=== PATIENT | male | born 1955 | race Caucasian/White ===

== ENCOUNTER 2017-07-01 07:30 | Outpatient (RCR) | payer OTHER, SELFPAY ==
--- NOTE | 2017-06-01 15:51 | HP.PTEVAL_ITS ---
Patient's Visit Information SHORTY VELEZ is a 62 year old M referred to Physical Therapy by DO JC Ricardo with a diagnosis of R TKA. Date of Evaluation: 06/01/17 Physical Therapist: Jose M Martínez PT, - Visit Plan Frequency: 2-3x /Week Duration: 6 Weeks Plan: R knee stretching and strengthening, PROM and mobs, core strengthening, nustep, and HEP - Subjective Subjective: DOS: 05/24/17. Pt reports he had a Hx of R knee pain prior to this surgery. Pt reports he had aarthroscopy performed in Jan secondary to torn meniscus. Pt reports the pain didnt get better, so a TKA was performed. Pt reports his knee is sore after the surgery, but the severe pain he had prior to surgery is gone. Pt reports he would get to the end of his work day in the past and barely be able to move. No T or N in R LE. Pt reports sleep diff secondary to pain. 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 3/10 at rest , 10/10 at worst (stairs, 3 into house) - Pain R knee pain Pain Intensity (Out of 10): 3 Pain Intensity Range: 10 - Objective Neuro: B LE sensation is WNL to light touch. B achilles 2/3. Girth at joint line: L knee 34 cm, R knee 39 cm. ROM: R knee 0-13-97, L knee 0-136. MMT: L knee 5/5 throughout, R knee 3+/5 throughout. Gait: Pt can ambulate 200 with SBA and CGA x 1 with WW - Goals Goal 1:: Increase R knee strength x 1 grade to aid with stair negotiation Goal Time Frame: 4-6 Weeks Goal 2:: Decrease R knee ROM x 30 degrees to aid with restoring a more normal gait pattern Goal Time Frame: 4-6 Weeks Goal 3:: Decrease R knee pain x 50% to aid with sleep Goal Time Frame: 4-6 Weeks Goal 4:: I with HEP Goal Time Frame: 4-6 Weeks - Rehabilitation Potential Physical Therapy Diagnosis: R knee pain, swelling, and weakness secondary to R TKA Rehabilitation Potential: Good - Anticipated Interventions Patient/Client Instruction: Educate patient on: Condition, Plan of Care For the Purpose of:: To improve self management Therapeutic Exercise to Include: Strength training, Endurance training, Balance training, Flexibilty training, Gait and locomotor training, Passive ROM, Active ROM, Dynamic Lumbar Stabilization For the Purpose of:: To decrease pain, To increase ROM, To improve muscle performance and motor function Cryotherapy (ice pack, ice massage): Yes For the Purpose of:: To decrease pain Thank you for the opportunity to evaluate your patient. For Medicare and Medicare HMO plans, please review the plan of care and approve it. It will need to be FAXED BACK to us at [phone] for Medicare purposes. Please let me know if there are questions or concerns regarding this plan of care. Physician Signature: Date:
--- NOTE | 2017-07-01 08:03 | HP.PTDCSUM ---
HP - PT D/C Summary It has been my pleasure to treat SHORTY VELEZ under orders from Jose Sorto DO, for the diagnosis of R TKA for a total of 13 visit(s). Discharge Date: Please see the following information for a summary of their discharge status. - Subjective Subjective: Pt reports he still has diff with sleep at night - Pain R knee pain Pain Intensity (Out of 10): 1 - Objective Objective/Function: R knee girth at joint line: 37 cm. R knee MMT: 5/5 throughout. R knee ROM: 0-5-123. I with HEP. Rx goals achieved - Goals Goal 1:: Increase R knee strength x 1 grade to aid with stair negotiation Goal 2:: Decrease R knee ROM x 30 degrees to aid with restoring a more normal gait pattern Goal Progress: Progressing Goal 3:: Decrease R knee pain x 50% to aid with sleep Goal 4:: I with HEP - Plan Plan: Discharge - D/C Information If there are questions or concerns regarding this patient's physical therapy, please feel free to call me at [phone]. Thank you for the referral of this patient. Sincerely, Jose M Martínez, PT,
== END 2017-07-01 19:00 | disposition home or self-care (01) ==
LOC: PT 07:30
PROVIDERS: Family Provider Internal Medicine; PCP Internal Medicine; Visit Provider Orthopaedic Surgery
DX: Z98.890 Other specified postprocedural states (principal)
CPT/HCPCS: 97110; 97161; 97530

== ENCOUNTER → 2017-07-04 12:49 | Outpatient (CLI) | payer OTHER, SELFPAY ==
--- NOTE | 2017-07-04 12:51 | RAD_ITS ---
STUDY: X-RAY - RIGHT KNEE REASON FOR EXAM: Male, 62 years old. TECHNIQUE: . 4 view(s) of the knee. COMPARISON: None. FINDINGS: There is a total knee replacement with metallic hardware in good position. There is fragmented changes involving the inferior aspect of the anterior tibial tubercle and swelling in the infrapatellar soft tissue. There is no knee joint effusion. RAD/Knee 4 or More Views IMPRESSION: A total right knee replacement with infrapatellar soft tissue swelling. The hardware is in good position. Electronically Signed: Mike Barron, at 2:54 EST Tel , Service support ,
== END ==
PROVIDERS: Family Provider Internal Medicine; PCP Internal Medicine; Visit Provider Orthopaedic Surgery
DX: Z47.89 Encounter for other orthopedic aftercare (principal)
CPT/HCPCS: 73564

== ENCOUNTER → 2017-12-05 16:20 | Outpatient (CLI) | payer OTHER, SELFPAY | PROVIDERS: Family Provider Internal Medicine; PCP Internal Medicine; Visit Provider Nurse Practitioner Adult Health | DX: R31.9 Hematuria, unspecified (principal) ==

== ENCOUNTER → 2017-12-06 17:55 | Outpatient (CLI) | payer SELFPAY ==
--- NOTE | 2017-12-06 | FLU_PTH ---
PATIENT: SHORTY VELEZ Jr. LOC: [facility] U#:[id number] AGE/SX: 70/M ROOM: RE12/06/[address]: NOLAN Lal : 1955 BED: DIS: SPEC #: [id number] RECD: 12/06/17 16:20 STATUS: THERESE ANU #: [id number] FLACA: 12/06/17 00:[address]: Daphne Porter NP DEPT: CYTOLOGY RECD BY: Lou Guillen Tissues: Urine Procedures: Pap Stain (control) Special Stain Group II Surgery Specimen Level IV Cytospin Fluid HEADER OPERATION: Not noted PRE-OP DIAGNOSIS: Hematuria TISSUE SUBMITTED: Urine for cytology DIAGNOSIS CYTOLOGY Urine for cytology (cytospin): Negative for malignant cells. OMER:cynthia 12/08/17 CYTOLOGY STUDY Slides are reviewed. The specimen predominantly consists of benign squamous cell, a few benign urothelial cells and red blood cells. CYTOLOGY GROSS Received is 50 ml of clear light yellow fluid labeled with the patient's name and and designated per the requisition as urine. Submitted for cytology preparation. /ARABELLA:richardson 12/07/17 TC:5 [facility]: [id number]
[2017-12-06 17:58] LABS: Cytology, Body Fluid / CSF SEE PATHOLOGY REPORT
== END ==
PROVIDERS: Visit Provider Nurse Practitioner Adult Health
DX: R31.9 Hematuria, unspecified (principal)
CPT/HCPCS: 88108; 88305; 88313

== ENCOUNTER 2017-12-29 19:57 | Inpatient (IN) | payer OTHER, SELFPAY ==
[2017-12-29 19:58] VITALS: BP 186/106; PULSE 103; RESP 27; TEMP 36.7; O2SAT 97; BMI 27.7
--- NOTE | 2017-12-29 20:03 | ED.RN ---
RN CALLED FOR EKG, PULLED OLD EKGS FOR
[2017-12-29 20:05] VITALS: BP 190/104; PULSE 101; RESP 40; O2SAT 100
[2017-12-29 20:23] LABS: Absolute Neutrophil Count 6.1 X10^3/uL (2.0-7.7); Basophil# 0.06 X10^3/uL; Basophil% 0.5 % (0-1); Eosinophils% 0.9 % (0-5); Hematocrit 38.3 % (40-54); Hemoglobin 13.5 g/dl (13.0-16.5); Lymphocyte % 34.2 % (19-41); Mean Corp Hgb Conc 35.2 g/gl (32-36); Mean Corpuscular Hgb 31.6 pg (27.0-32.0); Mean Corpuscular Volume 89.7 fL (80-94); Mean Platelet Vol. 9.7 fl (6.2-12.0); Monocyte# 1.22 X10^3/uL; Monocyte% 10.7 % (0-10); Neutrophil # 6.07 X10^3/uL (2.7-7.7); Neutrophil % 53.3 % (47-70); Platelet Count 344 K/mm3 (150-450); RBC Distribution Width CV 13.5 % (11.6-14.6); RBC Distribution Width SD 44.3 fl (35.1-43.9); Red Blood Count 4.27 M/mm3 (4.6-6.2); White Blood Count 11.4 K/mm3 (4.4-11.0)
[2017-12-29 20:26] LABS: D-Dimer Quantitative (DVT/PE) 0.47 FEU/ug/m (0.27-0.49); POSITIVE COUNT NO; POSITIVE DIFFERENTIAL NO; POSITIVE MORPHOLOGY NO
[2017-12-29 20:33] LABS: Anion Gap 13 (5-15); BUN 28 mg/dL (7-18); BUN/Creat Ratio 13.8 RATIO (10-20); Calcium,Total 9.5 mg/dL (8.5-10.1); Chloride 106 mmol/L (98-107); Creatinine, Serum 2.03 mg/dL (0.70-1.30); EST Glomerular Filtration Rate 36 mL/min (>60); Est Glom Filt Rate - Afr Amer 43 mL/min (>60); Estimated Creatinine Clearance 34.05 ml/min; Glucose 83 mg/dL (74-106); Potassium 4.2 mmol/L (3.5-5.1); Sodium Level 137 mmol/L (136-145)
[2017-12-29 21:00] VITALS: BP 132/102; PULSE 82; RESP 19; O2SAT 100
[2017-12-29] MEDS: 0.9% Normal Saline 1,000 ML 1000 ML IV (21:04)
[2017-12-29] MEDS: Aspirin 81 MG TAB.CHEW 324 MG PO (21:04)
[2017-12-29] MEDS: 0.9% Normal Saline 1,000 ML 999 ML IV (22:01)
[2017-12-29 22:45] VITALS: BP 148/95; PULSE 76; RESP 16; O2SAT 96
--- NOTE | 2017-12-29 23:59 | ED.DCSUM_ITS ---
- ER Visit Summary Date of Service: 12/29/17 Chief Complaint: Shortness of breath History of Present Illness: The patient is a [address] Marrero. He reports that he has severe shortness of breath began approximately 1 hour ago. He denies any chest pain. He states that he had finished mowing the grass and was in eating dinner at the onset of this. He has never had anything like this before. Patient denies any fever, chills, or cough. He does report that he has been diaphoretic. No nausea, or vomiting. Physical Examination: Vitals: Stable. Afebrile. General: Well-nourished and well-developed. Head: Normocephalic atraumatic. Neck: Supple, no lymphadenopathy. No JVD. Nontender. Cardiovascular: Regular rate and rhythm. No murmurs. Respiratory: No respiratory distress. Clear to auscultation bilaterally. Hyperventilating. Abdominal: Soft, nontender, nondistended, normal bowel sounds. No guarding, rebound, or peritoneal signs. Back: Nontender. Extremities: Nontender, no edema. Skin: Normal color, no rash. Neurologic: Alert and oriented ?3. Cranial nerves II through XII are intact. Normal strength and sensation. Psych: Normal affect. Test Results: EKG is sinus at 99 with a single PVC and nonspecific ST changes. Is unchanged from May of this year. Repeat EKG is unchanged. Initial troponin 0 0.017. Repeat troponin is 0.027. D-dimer is negative. Chem-7 is more for CO2 of 18, BUN of 28, creatinine 2.03. Of note his creatinine is been 0.81-1.02 in the past. His last creatinine was 0.88 in May of this year. CBC is marked for white count of 11.4 and hematocrit of 38.3. Emergency Department Course and Treatment: Patient was given a liter bolus normal saline. He was given aspirin p.o. He is resting comfortably and his dyspnea has resolved. Treatment Plan: The patient was discussed with Dr. Cordon. He will be admitted to the hospital for further evaluation and treatment. Disposition: Admitted in improved condition. Impression: 1. Dyspnea, possible anginal equivalent. 2. AV score of 2. 3. Acute renal insufficiency. This note was generated with [employer] software. It may contain incorrect words, spelling, and punctuation that were not noted in review of the chart prior to signing ED Disposition - Plan for ED Patient: Chief Complaint: Shortness of Breath Referrals: Spenser Marrero MD [Primary Care Provider] -
[2017-12-30 00:43] VITALS: PULSE 68
[2017-12-30 01:04] VITALS: BP 140/78; BP 141/87; PULSE 69; RESP 16; TEMP 36.7; O2SAT 97
[2017-12-30 01:21] VITALS: BMI 27.1; BMI 27.7
--- NOTE | 2017-12-30 01:23 | PCM.HP.STD ---
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 Patient did lawn mowing today and then at dinner time he was very short of breath along with diaphoresis. In the ED, he denied chest pain but on the floor, he complained of chest tightness, localized with no radiation. Patient also short of breath. Denies chronic respiratory disorder including asthma, COPD or sleep apnea. Patient also said many years ago he was put on antihypertensive medication but was discontinued secondary to side effect N was told he does not need it. His father has history of MA less than 50 years of age. He had a stress test done in 2012 which was negative for acute ischemia or MA. In ED, EKG shows normal sinus rhythm with nonspecific ST-T changes in V1 lead, unchanged from the previous EKG of October 2017. Repeat EKG in the floor also does not show any acute change. 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) 9 mm painful foreign body granuloma right central palm Medical History: Medical History (Last Reviewed 04/27/17 @ 08:42 by Marianne Lucero) Back pain M54.9 Heart murmur R01.1 Reflux esophagitis K21.0 Carpal tunnel syndrome G56.00 Allergies procaine [Procaine] Allergy (Verified 12/29/17 20:00) Other procaine HCl [From Novocain] Allergy (Verified 12/29/17 20:00) Other Home Medications: Ambulatory Orders Medication Instructions Recorded Pantoprazole Sodium [Protonix] 40 mg PO QHS 03/06/13 Aspirin [Aspirin, Baby] 81 mg PO DAILY@0800 04/02/15 Citalopram [Celexa] 20 mg PO QHS 04/02/15 Finasteride [Proscar] 5 mg PO DAILY 05/25/17 Pravastatin [Pravachol] 20 mg PO DAILY 12/29/17 Surgical History: Surgical History (Last Reviewed 04/27/17 @ 08:42 by Marianne Lucero) S/P right knee arthroscopy Z98.890 01/19/17 History of carpal tunnel surgery of right wrist Z98.890 2012 Previous back surgery Z98.890 left eye right central palm excision 9mm painful foreign body granuloma right central palm with 3 cm layered closure 06/19/15 Surgical History: - - Bilateral carpal tunnel surgery Psychiatric History: No pertinent psych hx Smoking Status: Never smoker - *Family History Paternal Family History: Family History (Last Reviewed 04/27/17 @ 08:42 by Marianne Lucero) Father CAD (coronary artery disease) History Items: Heart Disease Review of Systems Constitutional: Denies: Chills, Fever, Weight Change HEENT: Denies: Head Aches, Sinus Congestion, Sinus Drainage Cardiovascular: Reports: Chest Tightness. Denies: Chest Pain, Palpitations Respiratory: Reports: Shortness of Breath. Denies: Cough, Shortness of breath at rest, Sputum production Gastrointestinal: Denies: Abdominal Pain, Nausea, Vomiting Genitourinary: Denies: Dysuria Musculoskeletal: Denies: Joint Pain, Joint Tenderness Skin: Denies: Rash, Wounds Neurological: Denies: Numbness, Tingling, Focal weakness Psychiatric: Denies: Anxiety, Depression, Homicidal Ideations, Suicidal Ideations Hematologic/ Lymphatic: Denies: Easy Bruising, Easy Bleeding VTE Information - Inpt Only VTE Present on Admission: No VTE Mechan Device Prophylaxis: None VTE Pharm Prophylaxis ordered?: Yes Patient Problems: Active and Suspected Problems (Last Reviewed 04/27/17 @ 08:42 by Marianne Lucero) Anginal equivalent (Acute) - Physical Exam General: Alert, Oriented x3, Cooperative HEENT: Atraumatic, PERRLA, EOMI, Normocephalic Neck: Supple, No JVD, Negative Carotid Bruits Lungs: Clear to auscultation, Normal air movement Cardiovascular: Regular rate, Regular Rhythm, Normal S1, Normal S2, No murmurs Abdomen: Bowel Sounds Present, Soft, Non Tender, Non-Distended Extremities: No edema, Capillary Refill Less than 3 Seconds Skin: No rashes, No breakdown Musculoskeletal: No Tenderness to Palpation of Joints or Extremities, Arthritic Changes Neurological: Cranial nerves II-XII grossly intact Psych/Mental Status: Normal Affect, Appropriate Vital Signs Temp Pulse Resp BP Pulse Ox 98.1 F 69 16 140/78 H 97 12/30/17 01:04 12/30/17 01:04 12/30/17 01:04 12/30/17 01:04 12/30/17 01:04 Oxygen Delivery Method Room Air Assessment/Plan All Active Problems (Last Reviewed 04/27/17 @ 08:42 by Marianne Lucero) Anginal equivalent (Acute) The patient is a 62 year old M with history of dyslipidemia came to ER with shortness of breath while having dinner today. Patient did lawn mowing today and then at dinner time he was very short of breath along with diaphoresis. In the ED, he denied chest pain but on the floor, he complained of chest tightness, localized with no radiation. Patient also short of breath. Denies chronic respiratory disorder including asthma, COPD or sleep apnea. Patient also said many years ago he was put on antihypertensive medication but was discontinued secondary to side effect N was told he does not need it. His father has history of MA less than 50 years of age. He had a stress test done in 2012 which was negative for acute ischemia or MA. In ED, EKG shows normal sinus rhythm with nonspecific ST-T changes in V1 lead, unchanged from the previous EKG of October 2017. Repeat EKG in the floor also does not show any acute change. 1. Atypical chest pain with shortness of breath angina equivalent: AV score 2/7. Patient is being admitted on PCU. On ACS protocol with serial troponin enzymes, EKG, aspirin and a statin. Treadmill nuclear stress test tomorrow. 2. Acute kidney injury most probably secondary to hypovolemia/dehydration, prerenal in etiology: Patient BUN is 28 and creatinine 2.03. Last creatinine in May 2017 was normal at 0.88. Patient had 2 L of IV fluid normal saline ER. 500 normal saline bolus and then 150 mls per hour. Monitor intake and output. Monitor kidney function and electrolytes tomorrow morning. 3. Dyslipidemia and family history of MA: Continue home medication. Fasting lipid profile tomorrow a.m. 4. DVT prophylaxis, moderate risk on Lovenox 40 mg subcu daily. This note was generated with [employer] dictation software. Every effort was made to ensure accuracy, however computerized car dumper operator helper mistakes may persist. Code Visit Inpatient E&M: 24826 Init Hosp L3 OBSV E&M: 15171 Initial observation care L3
--- NOTE | 2017-12-30 01:32 | HP.PCM_ITS ---
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 Patient did lawn mowing today and then at dinner time he was very short of breath along with diaphoresis. In the ED, he denied chest pain but on the floor, he complained of chest tightness , localized with no radiation. Patient also short of breath. Denies chronic respiratory disorder including asthma, COPD or sleep apnea. Patient also said many years ago he was put on antihypertensive medication but was discontinued secondary to side effect N was told he does not need it. His father has history of NH less than 50 years of age. He had a stress test done in 2012 which was negative for acute ischemia or NH. In ED, EKG shows normal sinus rhythm with nonspecific ST-T changes in V1 lead, unchanged from the previous EKG of October 2017. Repeat EKG in the floor also does not show any acute change. 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) 9 mm painful foreign body granuloma right central palm Medical History: Medical History (Last Reviewed 04/27/17 @ 08:42 by Marianne Lucero) Back pain M54.9 Heart murmur R01.1 Reflux esophagitis K21.0 Carpal tunnel syndrome G56.00 Allergies procaine [Procaine] Allergy (Verified 12/29/17 20:00) Other procaine HCl [From Novocain] Allergy (Verified 12/29/17 20:00) Other Home Medications: Ambulatory Orders Medication Instructions Recorded Pantoprazole Sodium [Protonix] 40 mg PO QHS 03/06/13 Aspirin [Aspirin, Baby] 81 mg PO DAILY@0800 04/02/15 Citalopram [Celexa] 20 mg PO QHS 04/02/15 Finasteride [Proscar] 5 mg PO DAILY 05/25/17 Pravastatin [Pravachol] 20 mg PO DAILY 12/29/17 Surgical History: Surgical History (Last Reviewed 04/27/17 @ 08:42 by Marianne Lucero) S/P right knee arthroscopy Z98.890 01/19/17 History of carpal tunnel surgery of right wrist Z98.890 2012 Previous back surgery Z98.890 left eye right central palm excision 9mm painful foreign body granuloma right central palm with 3 cm layered closure 06/19/15 Surgical History: - - Bilateral carpal tunnel surgery Psychiatric History: No pertinent psych hx Smoking Status: Never smoker - *Family History Paternal Family History: Family History (Last Reviewed 04/27/17 @ 08:42 by Marianne Lucero) Father CAD (coronary artery disease) History Items: Heart Disease Review of Systems Constitutional: Denies: Chills, Fever, Weight Change HEENT: Denies: Head Aches, Sinus Congestion, Sinus Drainage Cardiovascular: Reports: Chest Tightness. Denies: Chest Pain, Palpitations Respiratory: Reports: Shortness of Breath. Denies: Cough, Shortness of breath at rest, Sputum production Gastrointestinal: Denies: Abdominal Pain, Nausea, Vomiting Genitourinary: Denies: Dysuria Musculoskeletal: Denies: Joint Pain, Joint Tenderness Skin: Denies: Rash, Wounds Neurological: Denies: Numbness, Tingling, Focal weakness Psychiatric: Denies: Anxiety, Depression, Homicidal Ideations, Suicidal Ideations Hematologic/ Lymphatic: Denies: Easy Bruising, Easy Bleeding VTE Information - Inpt Only VTE Present on Admission: No VTE Mechan Device Prophylaxis: None VTE Pharm Prophylaxis ordered?: Yes Patient Problems: Active and Suspected Problems (Last Reviewed 04/27/17 @ 08:42 by Marianne Lucero) Anginal equivalent (Acute) - Physical Exam General: Alert, Oriented x3, Cooperative HEENT: Atraumatic, PERRLA, EOMI, Normocephalic Neck: Supple, No JVD, Negative Carotid Bruits Lungs: Clear to auscultation, Normal air movement Cardiovascular: Regular rate, Regular Rhythm, Normal S1, Normal S2, No murmurs Abdomen: Bowel Sounds Present, Soft, Non Tender, Non-Distended Extremities: No edema, Capillary Refill Less than 3 Seconds Skin: No rashes, No breakdown Musculoskeletal: No Tenderness to Palpation of Joints or Extremities, Arthritic Changes Neurological: Cranial nerves II-XII grossly intact Psych/Mental Status: Normal Affect, Appropriate Vital Signs Temp Pulse Resp BP Pulse Ox 98.1 F 69 16 140/78 H 97 12/30/17 01:04 12/30/17 01:04 12/30/17 01:04 12/30/17 01:04 12/30/17 01:04 Oxygen Delivery Method Room Air Assessment/Plan All Active Problems (Last Reviewed 04/27/17 @ 08:42 by Marianne Lucero) Anginal equivalent (Acute) The patient is a 62 year old M with history of dyslipidemia came to ER with shortness of breath while having dinner today. Patient did lawn mowing today and then at dinner time he was very short of breath along with diaphoresis. In the ED, he denied chest pain but on the floor, he complained of chest tightness , localized with no radiation. Patient also short of breath. Denies chronic respiratory disorder including asthma, COPD or sleep apnea. Patient also said many years ago he was put on antihypertensive medication but was discontinued secondary to side effect N was told he does not need it. His father has history of NH less than 50 years of age. He had a stress test done in 2012 which was negative for acute ischemia or NH. In ED, EKG shows normal sinus rhythm with nonspecific ST-T changes in V1 lead, unchanged from the previous EKG of October 2017. Repeat EKG in the floor also does not show any acute change. 1. Atypical chest pain with shortness of breath angina equivalent: AV score 2 /7. Patient is being admitted on PCU. On ACS protocol with serial troponin enzymes, EKG, aspirin and a statin. Treadmill nuclear stress test tomorrow. 2. Acute kidney injury most probably secondary to hypovolemia/dehydration, prerenal in etiology: Patient BUN is 28 and creatinine 2.03. Last creatinine in May 2017 was normal at 0.88. Patient had 2 L of IV fluid normal saline ER. 500 normal saline bolus and then 150 mls per hour. Monitor intake and output. Monitor kidney function and electrolytes tomorrow morning. 3. Dyslipidemia and family history of NH: Continue home medication. Fasting lipid profile tomorrow a.m. 4. DVT prophylaxis, moderate risk on Lovenox 40 mg subcu daily. This note was generated with [employer] dictation software. Every effort was made to ensure accuracy, however computerized supervisor mold construction mistakes may persist. Code Visit Inpatient E&M: 71770 Init Hosp L3 OBSV E&M: 36168 Initial observation care L3
[2017-12-30 03:06] LABS: Absolute Lymphocyte Count 2.27 X10^3/ul (0.83-4.51); Absolute Neutrophil Count 3.4 X10^3/uL (2.0-7.7); Basophil# 0.05 X10^3/uL; Basophil% 0.7 % (0-1); Eosinophil# 0.21 X10^3/uL; Hematocrit 32.4 % (40-54); Hemoglobin 11.2 g/dl (13.0-16.5); Lymphocyte # 2.27 X10^3/ul (4.0); Lymphocyte % 32.4 % (19-41); Mean Corp Hgb Conc 34.6 g/gl (32-36); Mean Corpuscular Hgb 31.7 pg (27.0-32.0); Mean Corpuscular Volume 91.8 fL (80-94); Mean Platelet Vol. 9.2 fl (6.2-12.0); Monocyte# 1.02 X10^3/uL; Monocyte% 14.6 % (0-10); Neutrophil # 3.44 X10^3/uL (2.7-7.7); Neutrophil % 49.2 % (47-70); Platelet Count 263 K/mm3 (150-450); RBC Distribution Width CV 13.7 % (11.6-14.6); RBC Distribution Width SD 45.1 fl (35.1-43.9); Red Blood Count 3.53 M/mm3 (4.6-6.2)
[2017-12-30 03:09] LABS: International Normalized Ratio 1.1; Prothrombin Time (Protime)PT. 14.1 SECONDS (11.7-14.9)
[2017-12-30 03:10] LABS: Partial Thromboplast Time 27.7 Seconds (24.1-36.2)
[2017-12-30 03:18] LABS: POSITIVE COUNT NO; POSITIVE DIFFERENTIAL NO; POSITIVE MORPHOLOGY NO
[2017-12-30 03:29] VITALS: PULSE 66
[2017-12-30 03:46] LABS: Anion Gap 8 (5-15); BUN 24 mg/dL (7-18); BUN/Creat Ratio 19.2 RATIO (10-20); Calcium,Total 7.8 mg/dL (8.5-10.1); Chloride 113 mmol/L (98-107); Cholesterol 115 mg/dL (200); Creatinine, Serum 1.25 mg/dL (0.70-1.30); EST Glomerular Filtration Rate 62 mL/min (>60); Est Glom Filt Rate - Afr Amer 75 mL/min (>60); Estimated Creatinine Clearance 55.29 ml/min; Glucose 86 mg/dL (74-106); High Density Lipoprotein 43 mg/dL; Potassium 3.8 mmol/L (3.5-5.1); Sodium Level 142 mmol/L (136-145); Thyroid Stim Hormone (TSH) 0.96 uIU/mL (0.358-3.74); Triglycerides 47 mg/dL; Very Low Density Lipoprotein 9 mg/dL (5-40)
[2017-12-30 05:31] VITALS: BP 121/69; PULSE 68; RESP 16; TEMP 36.6; O2SAT 97
[2017-12-30] MEDS: Aspirin E.C. 81 MG Tablet PO (05:34)
[2017-12-30] MEDS: 0.9% Normal Saline 1,000 ML 150 ML IV (05:36)
[2017-12-30 06:55] VITALS: PULSE 69
--- NOTE | 2017-12-30 09:14 | STRESSREP ---
Stress Test Report Exercise myocardial perfusion stress test 62-year-old man with a history of chest pain. Medications: Aspirin, Proscar, Protonix, Pravachol. Stress protocol: Resting EKG demonstrates normal sinus rhythm with a rate of 65 bpm normal intervals and noted resting blood pressure is 154/92 mmHg. The patient exercised according to regular Hilario protocol for total duration of 6 minutes and 16 seconds. The maximum heart rate attained was 141 bpm which was 89% of maximum predicted heart rate the maximum workload attained was 7.3 metabolic equivalents. Patient maintained sinus rhythm throughout the recording. At rest there were no ST or T-wave changes noted suggest ischemia peak exercise upsloping ST changes only were noted with no meet the criteria for ischemia. No clinical angina was noted the test was terminated, due to shortness of breath. The resting blood pressure was 154/92 with a peak blood pressure 186/94. Rate pressure product was 25,200. Myocardial perfusion protocol. 11.0 mCi of technetium 99m sestamibi was injected at rest. The patient exercised according to regular Hilario protocol for total duration of 6 minutes and 16 seconds. At peak exercise 32.1 mCi of technetium 99m sestamibi was injected stress images were obtained stress and rest images were reconstructed and compared in the short axis vertical long and horizontal long axis. Gated images were also obtained pre- Perfusion SPECT analysis: Review of the stress images demonstrate normal uptake of tracer noted in all areas of the myocardium, except for the inferior wall with mildly reduced perfusion. The resting images similarly demonstrate normal areas of dark uptake except for the inferior wall with the same reduction of perfusion. The above is likely secondary to diaphragmatic and GI attenuation. No obvious areas of reversibility are noted suggest ischemia no previous infarct is noted. Gated SPECT analysis: The gated ejection fraction is noted to be 71%. Conclusion: Normal exercise myocardial perfusion stress test at a moderate workload. Preserved ejection fraction.
--- NOTE | 2017-12-30 10:17 | PCM.DC ---
- Discharge Diagnoses Current Active Problems: Current Active and Chronic Problems (Last Reviewed 04/27/17 @ 08:42 by Marianne Lucero) Anginal equivalent (Acute) Dyslipidemia (Chronic) You will use the following diet at home:: Regular Your food should be the consistency of: Regular Discharge Activity: Return to Normal Activity Weight Bearing Status: Full weight bearing Call your doctor if you observe: Fever of 101 or Higher, Shortness of breath, Dizziness, Fainting spells, Chest pain, Increased palpitations (irregular heartbeat), Uncontrolled pain Instructions: Taking Your Blood Pressure Allergies/Adverse Reactions: Allergies procaine [Procaine] Allergy (Verified 12/29/17 20:00) Other procaine HCl [From Novocain] Allergy (Verified 12/29/17 20:00) Other Medications to take at Discharge Pantoprazole Sodium [Protonix] 40 mg PO QHS 03/06/13 Aspirin [Aspirin, Baby] 81 mg PO DAILY@0800 04/02/15 Citalopram [Celexa] 20 mg PO QHS 04/02/15 Finasteride [Proscar] 5 mg PO DAILY 05/25/17 Pravastatin [Pravachol] 20 mg PO DAILY 12/29/17 Primary Care Physician: Spenser Marrero MD [Primary Care Provider] - Please follow up with your Primary Care Physician in: 1-2 weeks. Test Results: Test results from this visit will be discussed in further detail at your follow-up appointment, if applicable.
[2017-12-30 10:25] VITALS: BP 135/79; PULSE 58; RESP 16; TEMP 36.7; O2SAT 98
[2017-12-30] MEDS: Finasteride 5 MG Tablet PO (10:26)
--- NOTE | 2017-12-30 11:30 | CASEMGMT ---
This RN CM to room to complete CM assessment and pt has already been discharged. Per Olivia GRUBER, pt had no current needs at this time. Arline GRUBER CM
--- NOTE | 2017-12-30 12:07 | PCM.DC.SUM ---
Discharge Date and Diagnosis Date of Admission: 12/30/17 Date of Discharge: 12/30/17 - Primary Discharge Diagnosis #1 atypical chest pain/shortness of breath, questionable angina equivalent. #2 acute kidney injury. 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 He denies any more chest pain or shortness of breath since admission. He underwent nuclear stress this morning without any adverse effects. His vital signs are stable, blood pressure improved. - Physical Exam General: Alert, Oriented x3, Cooperative, No apparent distress. HEENT: Atraumatic, PERRLA, EOMI. Neck: Supple, No JVD, Negative Carotid Bruits, Trachea Midline, Thyroid Normal. Lungs: Clear to auscultation, Normal air movement, No rhonchi, No wheeze, No rales. Cardiovascular: Regular rate, Regular Rhythm, Normal S1, Normal S2, PMI Normal. Abdomen: Bowel Sounds Present, Soft, Non Tender, Non-Distended, No Hepato-splenomegaly. Extremities: No clubbing, No cyanosis, No edema Skin: No rashes, No breakdown Neurological: Neuro grossly intact Vital Signs are stable. Hospital course: The patient is a 62 year old M presented to the emergency room because of shortness of breath and intermittent chest pain and he was admitted because of questionable anginal symptoms. Patient admits that he has been working outside at work for long time then he went home and moan his lawn as he was overheated. His EKG revealed no acute ischemic changes. Troponin was negative ?2. Chest x-ray showed no acute findings. He underwent nuclear stress test that showed no evidence of stress-induced myocardial ischemia. On admission, he was found to have acute kidney injury with creatinine of 2. He was treated with IV fluids and his creatinine came down to 1.25, improved. Admission, his blood pressure was elevated but blood pressure returned back to normal after admission. His d-dimer, pro time and INR were normal. Lipid profile and TSH was unremarkable. Acute coronary syndrome ruled out. Patient discharged home in a stable medical condition, discharged on his chronic home medication without any changes, recommended to keep monitor his blood pressure, follow-up with PCP in 1-2 weeks. Discharge Activity: Return to Normal Activity Weight Bearing Status: Full weight bearing Call your doctor if you observe: Fever of 101 or Higher, Shortness of breath, Dizziness, Fainting spells, Chest pain, Increased palpitations (irregular heartbeat), Uncontrolled pain Home Medications: Medications to take at Discharge Pantoprazole Sodium [Protonix] 40 mg PO QHS 03/06/13 Aspirin [Aspirin, Baby] 81 mg PO DAILY@0800 04/02/15 Citalopram [Celexa] 20 mg PO QHS 04/02/15 Finasteride [Proscar] 5 mg PO DAILY 05/25/17 Pravastatin [Pravachol] 20 mg PO DAILY 12/29/17 Primary Care Physician: Spenser Marrero MD [Primary Care Provider] - Please follow up with your Primary Care Physician in: 1-2 weeks. Patient Instructions: Taking Your Blood Pressure Disposition: Home Minutes spent on discharge:: 25 Patient Condition:: Stable Medical Necessity - Tobacco Use Smoking Status: Never smoker Tobacco Use: Non-smoker Meaningful Use Info Meaningful Use Diagnoses (Choose all that apply): None applicable Code Visit OBSV E&M: 69135 Observation care discharge
== END 2017-12-30 10:55 | disposition home or self-care (01) | DRG 313 ==
LOC: ED 20:27 → PCU 12-30 00:29
PROVIDERS: Admitting Provider Internal Medicine; Emergency Provider Emergency Medicine; Family Provider Internal Medicine; PCP Internal Medicine; Visit Provider Hospitalist
DX: R07.89 Other chest pain (principal); N17.9 Acute kidney failure, unspecified; E86.0 Dehydration; E78.5 Hyperlipidemia, unspecified; R06.02 Shortness of breath; I20.8 Other forms of angina pectoris; Z87.891 Personal history of nicotine dependence; Z82.49 Family history of ischemic heart disease and other diseases of the circulatory system
CPT/HCPCS: 36415; 71045; 78452; 80048; 80061; 84443; 84484; 85025; 85379; 85610; 85730; 93005; 93017; 99283; A9500; J7030; J7040; A4216

== ENCOUNTER → 2018-12-29 11:14 | Outpatient (CLI) | payer OTHER, SELFPAY ==
[2017-12-30 01:21] VITALS: BMI 27.1
--- NOTE | 2018-12-29 11:16 | RAD_ITS ---
STUDY: X-RAY - RIGHT KNEE REASON FOR EXAM: Male, 63 years old. Total knee arthroplasty one year ago, pain TECHNIQUE: 4 view(s) of the knee. COMPARISON: None. FINDINGS: The arthroplasty components appear to be normally seated and articulated. Osseous structures acutely intact. Osteopenia. Small to moderate suprapatellar knee joint effusion. Periarticular soft tissues unremarkable. RAD/Knee 4 or More Views IMPRESSION: Knee joint effusion. Appropriate appearance of the arthroplasty. Electronically Signed: Austin Moon MD at 11:41 EDT Tel , Service support ,
== END ==
PROVIDERS: Family Provider Internal Medicine; PCP Internal Medicine; Referring Provider Orthopaedic Surgery; Visit Provider Orthopaedic Surgery
DX: J02.9 Acute pharyngitis, unspecified (principal); Z96.651 Presence of right artificial knee joint
CPT/HCPCS: 73564; 87081

== ENCOUNTER 2023-04-21 14:45 | Emergency (ER) | payer MEDICARE, OTHER, SELFPAY ==
[2023-04-21 14:46] VITALS: BP 138/104; PULSE 106; RESP 28; TEMP 36.3; O2SAT 98; BMI 27.9
--- NOTE | 2023-04-21 15:09 | EKG12_ITS ---
Test Reason : SHORT OF BREATH Blood Pressure : / mmHG Vent. Rate : 090 BPM Atrial Rate : 090 BPM P-R Int : 162 ms QRS Dur : 088 ms QT Int : 364 ms P-R-T Axes : 070 -44 038 degrees QTc Int : 445 ms Normal sinus rhythm Left axis deviation Abnormal ECG Confirmed by NOE HERRERA, QIANA ([id number]), editorial manager RICARDO LEAVITT ([id number]) on 04/25/2023 2:00:29 P M Referred By: PL Confirmed By:BOLIVAR LIU MD
--- NOTE | 2023-04-21 15:10 | ED.VIS.DYS ---
HPI History of Present Illness Chief Complaint: Shortness of Breath Informant: patient Narrative Narrative: Patient presents with cough dyspnea and subjective fever. Patient states that he woke up Tuesday morning feeling ill. Tuesday when he went to bed he felt perfectly fine. He woke up he had a sore throat, sneezing coughing myalgias and subjective fevers although he has not taken his temperature. He states the sore throat is gone. He is still coughing but he is bringing up some green sputum. No hemoptysis. No chest pain but he states he just aches all over mostly in his muscles. No real headache. He was exposed to COVID but it was almost 4 weeks ago. He has a grandchild who was sick but he does not know the details of that. Patient states his appetite is down but he has no nausea vomiting diarrhea or abdominal pain. No urinary symptoms. No rash. He does have a history of high blood pressure and cholesterol. He quit smoking over 20 years ago. His father may have had a heart problem in his 30s but never had a problem after that and never had stents or bypass surgery. This patient does not have chest pain. [facility] Medical History (Updated 04/21/23 @ 17:[address] Pankaj Cabrera MD) Back pain Carpal tunnel syndrome Heart murmur Reflux esophagitis Home Medications pantoprazole 40 mg tablet,delayed release 40 mg PO QHS gerd 03/06/13 [History Last Taken 03/05/13 20:00] aspirin 81 mg chewable tablet 81 mg PO DAILY@0800 heart health 04/02/15 [History Last Taken 05/16/17] citalopram 20 mg tablet 20 mg PO QHS depression 04/02/15 [History Last Taken Unknown] finasteride 5 mg tablet 5 mg PO DAILY prostate 05/25/17 [History Last Taken Unknown] pravastatin 20 mg tablet 20 mg PO DAILY cholesterol 12/29/17 [History Last Taken Unknown] levofloxacin 750 mg tablet 750 mg PO DAILY #6 tabs 04/21/23 [Rx Last Taken Unknown] Allergy/AdvReac Type Severity Reaction Status Date / Time procaine [Procaine] Allergy Other Verified 04/21/23 14:46 procaine HCl [From Novocain] Allergy Other Verified 04/21/23 14:46 Family History Father CAD (coronary artery disease) Surgical History History of carpal tunnel surgery of right wrist left eye Previous back surgery right central palm S/P right knee arthroscopy Social History Smoking Status: Never smoker ROS ROS ED ROS Narrative A complete review of systems was performed and is negative except as documented in the history of present illness. Some specific details below. Constitutional: Positive subjective fevers, myalgias and malaise. EYE: No discharge, visual complaints, or pain. ENT: No difficulty swallowing. No swelling. No pain. No reflux symptoms. He initially had a sore throat but that is gone. He still has nasal congestion and drainage but no blood. No facial pain. CV: No chest pain palpitations or syncope. Respiratory: See history of present illness. GI: No abdominal pain. No nausea vomiting diarrhea. No blood in stool. But his appetite is down. : No frequency dysuria or hematuria. Musculoskeletal: No recent trauma. He does have diffuse myalgias but no joint swelling. Skin: No rash. Nondiaphoretic. Neuro: No weakness or numbness. Endocrine: No polyuria or polydipsia. EXAM Physical Exam Narrative Exam Narrative: CONSTITUTIONAL: Patient is nontoxic in appearance. The patient looks comfortable. Work of breathing looks normal. But he is coughing while I am in the room. HEENT: No notable trauma. Mucous membranes moist. No exudate. No sinus tenderness. No indication of pain with swallowing. EYES: No conjunctival injection. No proptosis. No icterus. NECK:No JVD. No stridor. CARDIOVASCULAR: Regular rate at about 90 now. Regular rhythm. No notable murmur. No JVD. RESPIRATORY: No respiratory distress. But patient is coughing a fair amount. No sputum production seen while I am in the room. But he does have some expiratory wheeze. After I have him take a few deep breaths and he sits up the wheeze improves but it still there. He states he has heard this mostly at night. GASTROINTESTINAL: Not distended. Bowel sounds are normal. No tenderness. No guarding. No rebound. No palpable mass. No bruit is heard. GENITOURINARY: No tenderness over the bladder. No CVA tenderness. MUSCULOSKELETAL: Atraumatic. No peripheral edema. No cord. No tenderness along the deep venous system. No asymmetry. No distended veins. NEUROLOGICAL: Patient is alert and appropriate. No focal deficit noted. SKIN: No noted rashes. No diaphoresis. PSYCHIATRIC: Patient is calm. Mood is appropriate. Const Vital Signs: 04/21/23 14:46 04/21/23 15:02 04/21/23 15:25 Temperature 97.3 F L 97.8 F Temperature Source Temporal Temporal Pulse Rate 106 H 89 Respiratory Rate 28 H 15 Respiratory Effort Short of Breath Labored Respiratory Depth Normal Respiratory Pattern Tachypnea Blood Pressure 138/104 H 152/96 H Blood Pressure Mean 115 114 Pulse Ox 98 98 Oxygen Delivery Method Room Air Room Air 04/21/23 15:27 Temperature Temperature Source Pulse Rate 90 Respiratory Rate 14 Respiratory Effort Respiratory Depth Respiratory Pattern Normal Blood Pressure Blood Pressure Mean Pulse Ox Oxygen Delivery Method MDM MDM MDM Narrative Medical decision making narrative: My independent interpretation of the patient's two-view x-ray of the chest does show what appears to be some basilar infiltrate. Final reading shows some mild inflammatory changes in the left lower lobe. Patient CBC does show slight elevation in the white count at 12.3 otherwise normal. Patient's electrolytes show minimally low sodium at 130 EMS should self-correct. Patient's glucose is normal at 103. With patient's subjective fevers, cough, green sputum production, slight elevation white count, and x-ray findings I do think he should be treated with antibiotics for pneumonia. We will get him started on Levaquin. He did get good improvement with the albuterol. He states it slowed his breathing down and made it much more comfortable. I was going to write him for albuterol MDI but he states he has a good 1 at home he can use even though that was not listed on his med list. We discussed reasons to return. His COVID and influenza are negative. Lab Data Attestation: I reviewed the patient's lab results. Labs: Laboratory Results - last 24 hr 04/21/23 15:15 WBC 12.3 H RBC 4.53 L Hgb 14.1 Hct 41.6 MCV 91.8 MCH 31.1 MCHC 33.9 RDW Std Deviation 43.8 RDW Coeff of Jim 12.9 Plt Count 396 MPV 9.3 Immature Gran % (Auto) 0.300 Neut % (Auto) 49.9 Lymph % (Auto) 32.7 [place] % (Auto) 14.0 H Eos % (Auto) 2.6 Baso % (Auto) 0.5 Absolute Neuts (auto) 6.1 Absolute Lymphs (auto) 4.02 Nucleated RBC % 0 Differential Comment SCANNED Diff Path Review May foll Sodium 133 L Potassium 4.3 Chloride 106 Carbon Dioxide 23.0 Anion Gap 4 L BUN 17 Creatinine 1.27 Estim Creat Clear Calc 50.24 Est GFR (MDRD) Af Amer 73 Est GFR (MDRD) Non-Af 60 BUN/Creatinine Ratio 13.4 Glucose 103 Calcium 9.5 Radiography Diagnostic Testing: Clinical Impression(s) from Imaging Studies Chest X-Ray 04/21/23 15:50 IMPRESSION: Findings which may be consistent with mild focal inflammatory changes in left lower lobe. Electronically Signed: Nate Carbone MD at 16:55 EST , EKG Initial EKG: Comments: My independent interpretation of the patient's EKG done for dyspnea shows a normal sinus rhythm with a rate of 90. No ectopy. No acute ST elevation or depression. HI interval, QRS duration and QTc are all normal. Discharge Plan Triage Chief Complaint: Shortness of Breath ED Provider: Pankaj Cabrera Dx/Rx/DC Orders Clinical Impression: Leukocytosis, Community acquired pneumonia, Acute bronchospasm Instructions: ED Pneumonia (Adult) Prescriptions: New levofloxacin 750 mg tablet 750 mg PO DAILY Qty: 6 0RF No Action pantoprazole 40 MG tablet 40 mg PO QHS Patient Comments: antiacid citalopram 20 MG tablet 20 mg PO QHS aspirin 81 MG tablet,chewable 81 mg PO DAILY@0800 finasteride 5 MG tablet 5 mg PO DAILY pravastatin 20 MG tablet 20 mg PO DAILY Primary Care Provider: Spenser Marrero Referrals: Spenser Marrero MD [Primary Care Provider] - 5-7 Days Disposition Disposition: Home, Self Care
[2023-04-21 15:25] VITALS: BP 152/96; PULSE 89; RESP 15; TEMP 36.6; O2SAT 98
[2023-04-21] MEDS: Ipratropium/Albuterol Sulfate 3 ML AMPUL.NEB INHALATION (15:25)
[2023-04-21 15:27] VITALS: PULSE 90; RESP 14
[2023-04-21 15:39] LABS: Absolute Lymphocyte Count 4.02 X10^3/uL (0.83-4.51); Absolute Neutrophil Count 6.1 X10^3/uL (2.0-7.7); Basophil# 0.06 X10^3/uL; Basophil% 0.5 % (0-1); Eosinophil# 0.32 X10^3/uL; Eosinophils% 2.6 % (0-5); Hematocrit 41.6 % (40-54); Hemoglobin 14.1 g/dL (13.0-16.5); Lymphocyte # 4.02 X10^3/ul (0.83-4.51); Lymphocyte % 32.7 % (19-41); Mean Corp Hgb Conc 33.9 g/dL (32-36); Mean Corpuscular Hgb 31.1 pg (27.0-32.0); Mean Corpuscular Volume 91.8 fL (80-94); Mean Platelet Vol. 9.3 fl (6.2-12.0); Monocyte# 1.72 X10^3/uL; NRBC Flagged by Analyzer 0 % (0-5); Neutrophil # 6.12 X10^3/uL (2.7-7.7); Neutrophil % 49.9 % (47-70); POSITIVE DIFFERENTIAL YES; Platelet Count 396 K/mm3 (150-450); RBC Distribution Width CV 12.9 % (11.6-14.6); RBC Distribution Width SD 43.8 fl (35.1-43.9); Red Blood Count 4.53 M/mm3 (4.6-6.2); White Blood Count 12.3 K/mm3 (4.4-11.0)
--- NOTE | 2023-04-21 15:50 | RAD_ITS ---
STUDY: X-RAY CHEST REASON FOR EXAM: Male, 68 years old. cough TECHNIQUE: PA and lateral COMPARISON: December 29, 2017 FINDINGS: There is subtle asymmetric interstitial thickening with slightly increased density in left lower lobe not visualized on prior exam possibly representing acute inflammatory changes.. Lungs are otherwise clear. There is eventration of right hemidiaphragm. There is no demonstrated pleural abnormality. Normal size heart. Normal mediastinum and ines. Normal visualized pulmonary arteries. Normal visualized aortic arch and descending thoracic aorta. Dorsal spine demonstrates mild spondylosis. Normal visualized ribs, clavicles, and shoulders. There is no demonstrated abnormality of the visualized soft tissue structures of the upper abdomen. RAD/Chest PA and Lateral IMPRESSION: Findings which may be consistent with mild focal inflammatory changes in left lower lobe. Electronically Signed: Nate Carbone MD at 16:55 EST ,
[2023-04-21 15:53] LABS: Anion Gap 4 (5-15); BUN 17 mg/dL (7-18); BUN/Creat Ratio 13.4 RATIO (10-20); Calcium,Total 9.5 mg/dL (8.5-10.1); Chloride 106 mmol/L (98-107); Creatinine, Serum 1.27 mg/dL (0.70-1.30); EST Glomerular Filtration Rate 60 mL/min (>60); Est Glom Filt Rate - Afr Amer 73 mL/min (>60); Estimated Creatinine Clearance 50.24 ml/min; Glucose 103 mg/dL (74-106); Potassium 4.3 mmol/L (3.5-5.1); Sodium Level 133 mmol/L (136-145)
[2023-04-21 16:14] LABS: Differential Comment SCANNED; Differential Indicated SCAN CRITERIA MET
[2023-04-21] MEDS: levoFLOXacin 750 MG Tablet PO (17:22)
[2023-04-21 17:25] VITALS: BP 139/88; PULSE 84; RESP 17; O2SAT 97
[2023-04-22 13:23] LABS: Pathologist Review Reviewed
== END 2023-04-21 17:29 | disposition home or self-care (01) ==
PROVIDERS: Emergency Provider Emergency Medicine; PCP Internal Medicine; Visit Provider Emergency Medicine
DX: J18.9 Pneumonia, unspecified organism (principal); Z87.891 Personal history of nicotine dependence; D72.829 Elevated white blood cell count, unspecified; J98.01 Acute bronchospasm; K21.00 Gastro-esophageal reflux disease with esophagitis, without bleeding; Z79.899 Other long term (current) drug therapy
CPT/HCPCS: 71046; 80048; 85025; 87428; 93005; 94640; 99284; A4216